=== PATIENT | male | born 1970 | race Hispanic/Latino ===

== ENCOUNTER 2019-11-03 12:14 | Emergency (ER) | payer SELFPAY ==
[~2019-11-03] VITALS: Ht 172.7 cm; Wt 79.4 kg
[2019-11-03 12:32] VITALS: BP 167/96
== END 2019-11-03 12:33 | disposition left against medical advice (07) ==
LOC: ER 12:14
DX: R10.84 Generalized abdominal pain (principal); E11.22 Type 2 diabetes mellitus with diabetic chronic kidney disease; I12.0 Hypertensive chronic kidney disease with stage 5 chronic kidney disease or end stage renal disease; N18.6 End stage renal disease; Z99.2 Dependence on renal dialysis; K70.30 Alcoholic cirrhosis of liver without ascites; F17.200 Nicotine dependence, unspecified, uncomplicated; Z82.49 Family history of ischemic heart disease and other diseases of the circulatory system
CPT/HCPCS: 99282